=== PATIENT | female | born 1960 ===

== ENCOUNTER 2017-10-17 21:58 | Emergency (ER) | payer BC, OTHER ==
[2017-10-17 22:27] VITALS: BP 152/105; PULSE 79; RESP 18; TEMP 97.9; O2SAT 100
[2017-10-17] MEDS ORDERED: Sodium Chloride 0.9% 1,000 ML IV STA (22:42)
[2017-10-17] MEDS ORDERED: DiphenhydrAMINE 50 mg/ml Inj IV STA (22:42)
[2017-10-17] MEDS ORDERED: Dexamethasone 10 MG in Sodium Chloride 0.9% 50 ML IV STA (22:42)
[2017-10-17] MEDS ORDERED: Famotidine 20mg/50ml Premix IVPB STA (22:42)
[2017-10-17] MEDS ORDERED: Famotidine 20mg/50ml 20 MG/50 ML BAG IVPB ONE (22:59)
[2017-10-17] MEDS ORDERED: DiphenhydrAMINE 50 mg/ml Inj ONE (22:59)
--- NOTE | 2017-10-17 23:16 | ED PDOC ---
HPI: Allergic Reaction Time Seen by Provider: 10/17/17 22:34 Chief Complaint (Nursing): Allergic Reaction Chief Complaint (Provider): Allergic Reaction History Per: Patient History/Exam Limitations: no limitations Onset/Duration Of Symptoms: Days (x2) Current Symptoms Are (Timing): Still Present Additional Complaint(s): 57 y/o female with a pmhx of antiphospholipid antibody syndrome , who presents to the ER for evaluation of an allergic reaction x2 days. Patient states shes had sore throat, shortness of breath, and headache onset last night after eating a salad. She reports her symptoms improved by the morning, however they recurred after eating the same salad for lunch. Patient reports multiple food allergies and suspects the salad may have contained an item she is allergic to. She denies any rash, drooling, nausea, vomiting, or diarrhea, but describes chills. Patient also describes a feeling of chest tightness. Patient is able to speak and swallow, but voice is hoarse. Past Medical History Reviewed: Historical Data, Nursing Documentation, Vital Signs Vital Signs: Last Vital Signs Temp 97.9 F 10/17/17 22:22 Pulse 79 10/17/17 22:22 Resp 18 10/17/17 22:22 BP 152/105 H 10/17/17 22:22 Pulse Ox 100 10/17/17 22:22 - Medical History Other PMH: Antiphospholipid antibody syndrome - Surgical History Surgical History: No Surg Hx - Family History Family History: States: Unknown Family Hx - Social History Current smoker - smoking cessation education provided: No Alcohol: None Drugs: Denies - Home Medications Home Medications: Ambulatory Orders Medication Instructions Recorded Cetirizine HCl [Zyrtec] 10 mg PO QAM #10 capsule 10/18/17 Methylprednisolone [Medrol Dosepak] 4 mg PO ASDIR #1 pkg 10/18/17 - Allergies Allergies/Adverse Reactions: Allergies Allergy/AdvReac Type Severity Reaction Status Date / Time almond Allergy RASH Verified 10/17/17 22:22 ponce Allergy RASH Verified 10/17/17 22:22 latex Allergy RASH Verified 10/17/17 22:22 mushroom Allergy RASH Verified 10/17/17 22:22 pineapple Allergy RASH Verified 10/17/17 22:22 berries Allergy RASH Uncoded 10/17/17 22:22 Review of Systems ROS Statement: Except As Marked, All Systems Reviewed And Found Negative Constitutional: Positive for: Chills. Negative for: Fever ENT: Positive for: Throat Pain Cardiovascular: Positive for: Other (chest tightness) Respiratory: Positive for: Shortness of Breath Gastrointestinal: Negative for: Nausea, Vomiting, Diarrhea Skin: Negative for: Rash Neurological: Positive for: Headache Physical Exam - Reviewed Nursing Documentation Reviewed: Yes Vital Signs Reviewed: Yes - Physical Exam Appears: Positive for: Non-toxic, No Acute Distress, Uncomfortable Head Exam: Positive for: ATRAUMATIC, NORMAL INSPECTION, NORMOCEPHALIC Skin: Positive for: Normal Color, Warm, Dry. Negative for: Rash Eye Exam: Positive for: EOMI, Normal appearance, PERRL ENT: Positive for: Pharyngeal Erythema Neck: Positive for: Normal, Painless ROM, Supple Cardiovascular/Chest: Positive for: Regular Rate, Rhythm. Negative for: Murmur Respiratory: Positive for: Normal Breath Sounds. Negative for: Respiratory Distress Gastrointestinal/Abdominal: Positive for: Normal Exam, Soft. Negative for: Tenderness Back: Positive for: Normal Inspection. Negative for: L CVA Tenderness, R CVA Tenderness, Vertebral Tenderness Extremity: Positive for: Normal ROM. Negative for: Pedal Edema, Deformity Neurologic/Psych: Positive for: Alert, Oriented. Negative for: Motor/Sensory Deficits - Laboratory Results Result Diagrams: 10/17/17 23:10 10/17/17 23:10 - ECG O2 Sat by Pulse Oximetry: 100 (RA) Pulse Ox Interpretation: Normal Disposition - Clinical Impression Clinical Impression: Allergic reaction - Patient ED Disposition Is Patient to be Admitted: No Counseled Patient/Family Regarding: Studies Performed, Diagnosis, Need For Followup, Rx Given - Disposition Disposition: Routine/Home Disposition Time: 01:03 Condition: STABLE Prescriptions: Cetirizine HCl [Zyrtec] 10 mg PO QAM #10 capsule Methylprednisolone [Medrol Dosepak] 4 mg PO ASDIR #1 pkg Instructions: Food Allergy Forms: [employer] (Korean) Medical Decision Making Medical Decision Makin:42 Initial Impression: 57 y/o female with acute allergic reaction Plan: --EKG --CMP --CBC --PTT/PT --Benadryl 50mg IV --Decadron Inj 10mg --1LNS --Pepcid 40mg IVPB --Heplock insertion --Reevaluation 01:03 Upon reevaluation, patient reports marked improvement of symptoms. Provider explained to patient that INR levels are subtherapeutic. Patient reports she stopped taking Coumadin while on antibiotics. She says she will follow up with PMD and states she knows how to take Coumadin properly to reach therapeutic levels. Scribe Attestation: Documented by Flaco Cortez, acting as a scribe for Abhay Monreal MD Provider Scribe Attestation: All medical record entries made by the Scribe were at my direction and personally dictated by me. I have reviewed the chart and agree that the record accurately reflects my personal performance of the history, physical exam, medical decision making, and the department course for this patient. I have also personally directed, reviewed, and agree with the discharge instructions and disposition.
[2017-10-17 23:46] LABS: BASO # 0.1 K/uL (0.0-0.2); BASO % 0.8 % (0.0-2.0); EOS # 0.4 K/uL (0.0-0.7); EOS % 4.7 % (0.0-4.0); HEMOGLOBIN 14.4 g/dL (12.0-16.0); LYMPH # 4.9 K/uL (1.0-4.3); LYMPH % 58.9 % (20.0-40.0); MEAN CELL VOLUME 94.8 fl (81.0-99.0); MEAN CORPUSCULAR HEMOGLOBIN 32.5 pg (27.0-31.0); MEAN CORPUSCULAR HGB CONC 34.3 g/dL (33.0-37.0); MEAN PLATELET VOLUME 9.9 fl (7.2-11.7); MONO # 0.7 K/uL (0.0-0.8); MONO % 8.7 % (0.0-10.0); NEUT # 2.2 K/uL (1.8-7.0); NEUT % 26.9 % (50.0-75.0); NRBC % 0.1 % (0.0-0.0); RBC 4.43 Mil/uL (3.80-5.20); RED CELL DISTRIBUTION WIDTH 12.9 % (11.5-14.5); WHITE BLOOD COUNT 8.3 K/uL (4.8-10.8)
[2017-10-17 23:53] LABS: CALCIUM 9.4 mg/dL (8.4-10.2); GFR AFRICAN-AMERICAN > 60; GFR NON-AFRICAN AMERICAN > 60
[2017-10-17 23:54] LABS: ALB/GLOB RATIO 1.1 (1.0-2.1); ALBUMIN 4.1 g/dL (3.5-5.0); ALT/SGPT 41 U/L (9-52); AST/SGOT 37 U/L (14-36); BLOOD UREA NITROGEN 16 mg/dl (7-17)
[2017-10-18 00:07] LABS: INR 1.1 (0.9-1.2); PARTIAL THROMBOPLASTIN TIME 35.6 Seconds (25.6-37.1); PROTHROMBIN TIME 12.6 Seconds (9.8-13.1)
--- NOTE | 2017-10-18 10:27 | CARD ---
APPROVED REPORT EKG Measurement Heart [id number] <Conclusion> Normal sinus rhythm Normal ECG
== END 2017-10-18 01:15 | disposition home or self-care (01) ==
LOC: H.ER 21:58
DX: T78.40XA Allergy, unspecified, initial encounter (principal); D68.61 Antiphospholipid syndrome
CPT/HCPCS: 80053; 85025; 85610; 85730; 93005; 96365; 96375; 99283; J1100; J1200; J7030

== ENCOUNTER 2018-04-19 13:28 | Observation (INO) | payer BC ==
[2018-04-19] MEDS ORDERED: Glucagon Recombinant 1 mg Inj IV ONE ×2 (15:15→15:45)
[2018-04-19] MEDS ORDERED: Glucagon Recombinant 1 mg Inj ONE (15:26)
[2018-04-19 15:37] LABS: BASO # 0.1 K/uL (0.0-0.2); BASO % 1.1 % (0.0-2.0); EOS # 0.3 K/uL (0.0-0.7); EOS % 5.2 % (0.0-4.0); HEMOGLOBIN 14.7 g/dL (12.0-16.0); LYMPH # 2.8 K/uL (1.0-4.3); LYMPH % 48.7 % (20.0-40.0); MEAN CELL VOLUME 94.2 fl (81.0-99.0); MEAN CORPUSCULAR HEMOGLOBIN 31.7 pg (27.0-31.0); MEAN CORPUSCULAR HGB CONC 33.6 g/dL (33.0-37.0); MEAN PLATELET VOLUME 10.9 fl (7.2-11.7); MONO # 0.5 K/uL (0.0-0.8); MONO % 8.2 % (0.0-10.0); NEUT # 2.1 K/uL (1.8-7.0); NEUT % 36.8 % (50.0-75.0); NRBC % 0.1 % (0.0-0.0); RBC 4.66 Mil/uL (3.80-5.20); RED CELL DISTRIBUTION WIDTH 13.1 % (11.5-14.5); WHITE BLOOD COUNT 5.8 K/uL (4.8-10.8)
[2018-04-19 15:53] LABS: INR 1.1; PROTHROMBIN TIME 12.9 Seconds (9.8-13.1)
--- NOTE | 2018-04-19 15:53 | ED PDOC ---
HPI: Chest Pain Time Seen by Provider: 04/19/18 15:08 Chief Complaint (Nursing): Chest Pain Chief Complaint (Provider): Chest Pain History Per: Patient History/Exam Limitations: no limitations Onset/Duration Of Symptoms: Sudden Onset (1400) Current Symptoms Are (Timing): Still Present Additional Complaint(s): Rosaline Cotton is a 58 year old female, with a PMHx of antiphospholipid syndrome (taking Coumadin), presenting for evaluation of sudden onset chest discomfort an d dysphasia that began at 1400 today. Patient states she was eating celery and carrots when her symptoms began. Patient states he does not believe she chewed well enough and reports pain and pressure that radiates to her throat since swallowing. Patient reports she tried to drink coffee this morning, but was unsuccessful and feels nauseous. Patient otherwise denies any fevers, chills, cough, melena, abdominal pain, and syncope. PMD: Dr. Jd Eagle Past Medical History Reviewed: Historical Data, Nursing Documentation, Vital Signs Vital Signs: Last Vital Signs Temp 97.5 F L 04/19/18 13:34 Pulse 64 04/19/18 13:34 Resp 16 04/19/18 13:34 BP 129/74 04/19/18 13:34 Pulse Ox 99 04/19/18 13:34 - Medical History PMH: Denies: Chronic Kidney Disease Other PMH: Antiphospholipid syndrome - Surgical History Surgical History: No Surg Hx - Family History Family History: States: Unknown Family Hx - Home Medications Home Medications: Ambulatory Orders Medication Instructions Recorded RX: Multivit-Min/Iron/Folic/Bmn833 1 tab PO DAILY 04/19/18 [Hair, Skin and Nails Tablet] RX: Warfarin [Coumadin] 7.5 mg PO DAILY #30 tab 04/20/18 - Allergies Allergies/Adverse Reactions: Allergies Allergy/AdvReac Type Severity Reaction Status Date / Time almond Allergy RASH Verified 10/17/17 22:22 ponce Allergy RASH Verified 10/17/17 22:22 latex Allergy RASH Verified 10/17/17 22:22 mushroom Allergy RASH Verified 10/17/17 22:22 pineapple Allergy RASH Verified 10/17/17 22:22 berries Allergy RASH Uncoded 10/17/17 22:22 Review of Systems ROS Statement: Except As Marked, All Systems Reviewed And Found Negative Constitutional: Negative for: Fever, Chills ENT: Positive for: Throat Pain (difficulty swallowing) Cardiovascular: Positive for: Chest Pain (discomfort) Respiratory: Negative for: Cough Gastrointestinal: Negative for: Abdominal Pain, Melena Neurological: Positive for: Change in Speech (dysphasia). Negative for: Other (syncope) Physical Exam - Reviewed Nursing Documentation Reviewed: Yes Vital Signs Reviewed: Yes - Physical Exam Appears: Positive for: Non-toxic, No Acute Distress Head Exam: Positive for: ATRAUMATIC, NORMAL INSPECTION, NORMOCEPHALIC Skin: Positive for: Normal Color, Warm, Dry. Negative for: Rash Eye Exam: Positive for: EOMI, Normal appearance, PERRL ENT: Positive for: Normal ENT Inspection Neck: Positive for: Normal, Painless ROM, Supple Cardiovascular/Chest: Positive for: Regular Rate, Rhythm. Negative for: Murmur Respiratory: Positive for: Normal Breath Sounds. Negative for: Respiratory Distress Gastrointestinal/Abdominal: Positive for: Normal Exam, Soft. Negative for: Tenderness Back: Positive for: Normal Inspection. Negative for: L CVA Tenderness, R CVA Tenderness, Vertebral Tenderness Extremity: Positive for: Normal ROM. Negative for: Pedal Edema, Deformity Neurologic/Psych: Positive for: Alert, Oriented (x3). Negative for: Motor/Sensory Deficits - Laboratory Results Result Diagrams: 04/19/18 15:33 04/19/18 15:33 - ECG ECG: Positive for: Interpreted By Me, Viewed By Me ECG Rhythm: Positive for: Normal ST Segment, Sinus Rhythm (63 BPM) O2 Sat by Pulse Oximetry: 99 (RA) Pulse Ox Interpretation: Normal Medical Decision Making Medical Decision Making: Plan: Patient's clinical history is supportive of an impacted food bolus. Will obtain blood work including INR and CT chest to rule out ruptured esophagus, although less likely given the patient's lack of vomiting. Case discussed with Dr. Collins, GI career professional, who is in agreement with trial of Glucagon. Awaiting I NR. May need reversal prior to scope. INR normal Dr Collins saw pt at bedside, rec trial PO soda, 8oz coke given with tolerance but ++pain and belching, symptoms persisted thereafter Admit Obs for EGD in am. Patient informed of results, remain NPO. Scribe Attestation: Documented by Flaco Cortez, acting as a scribe for Aamir Ortiz III, DO. Provider Scribe Attestation: All medical record entries made by the Scribe were at my direction and personally dictated by me. I have reviewed the chart and agree that the record accurately reflects my personal performance of the history, physical exam, medical decision making, and the department course for this patient. I have also personally directed, reviewed, and agree with the discharge instructions and disposition. Disposition - Clinical Impression Clinical Impression: Food impaction of esophagus - Patient ED Disposition Is Patient to be Admitted: Yes - Disposition Disposition Time: 17:30 Condition: STABLE
[2018-04-19 15:56] LABS: PARTIAL THROMBOPLASTIN TIME 38.4 Seconds (25.6-37.1)
[2018-04-19 16:00] LABS: ALB/GLOB RATIO 1.2 (1.0-2.1); ALBUMIN 4.4 g/dL (3.5-5.0); BLOOD UREA NITROGEN 10 mg/dl (7-17); CALCIUM 9.6 mg/dL (8.4-10.2); GFR NON-AFRICAN AMERICAN > 60; LIPASE 77 U/L (23-300)
[2018-04-19 16:04] LABS: ALT/SGPT 52 U/L (9-52); AST/SGOT 38 U/L (14-36)
--- NOTE | 2018-04-19 16:38 | CT ---
Date of service: 04/19/2018 PROCEDURE: CT Chest without contrast HISTORY: chest pain w impacted food bolus r/o esoph tear COMPARISON: None available. TECHNIQUE: Contiguous axial images were obtained through the chest without intravenous contrast enhancement. Sagittal and coronal reconstructions were performed. Radiation dose: Total exam DLP = 377.08 mGy-cm. This CT exam was performed using one or more of the following dose reduction techniques: Automated exposure control, adjustment of the mA and/or kV according to patient size, and/or use of iterative reconstruction technique. FINDINGS: LUNGS: The lungs are well inflated and clear. Visualized airway clear MEDIASTINUM: Unremarkable thoracic aorta. No aneurysm. Normal sized heart. Main pulmonary artery unremarkable. No vascular congestion. No lymphadenopathy. No aortic atherosclerotic calcification. Evaluation of the esophagus is limited in the absence of oral contrast. Allowing for this, there is no evidence for pneumomediastinum to suggest esophageal tear. There is a small sliding hiatal hernia. Otherwise the thoracic esophagus is decompressed. PLEURA: No pleural fluid. No pneumothorax. BONES: No fracture. No destructive lesion. UPPER ABDOMEN: Grossly unremarkable. OTHER FINDINGS: None. IMPRESSION: Clear lungs. Evaluation of the thoracic esophagus is limited in the absence of oral contrast. Allowing for this, small sliding hiatal hernia. The thoracic esophagus is decompressed. No evidence of pneumomediastinum to suggest esophageal tear.
[2018-04-19] MEDS ORDERED: Sodium Chloride 0.9% 1,000 ML IV STA (18:09)
[2018-04-19] MEDS ORDERED: Morphine 4 MG/ML VIAL IVP PRN ×2 (23:34→23:36)
[2018-04-20] MEDS ORDERED: Sodium Chloride 0.9% 1,000 ML IV SCH (02:00)
[2018-04-20] MEDS ORDERED: Lactated Ringer's 500 ML IV ONE (08:11)
[2018-04-20] MEDS ORDERED: Propofol 10 mg/ml Inj (20 ML) ONE (08:22)
[2018-04-20 11:04] VITALS: BP 114/76; PULSE 69; RESP 18; TEMP 98
--- NOTE | 2018-04-20 17:35 | CP.PCM.HP ---
<Alistair Everett - Last Filed: 04/20/18 17:32> History of Present Illness - History of Present Illness History of Present Illness: Pt is a 58 y/o female with hx of Antiphospholipid syndrome who presented to ED with throat and chest pain. States a few days ago she was eating a salad very fast and soon after began to experience throat pain whenever she ate. Today the pain was unbearable, which is what prompted her to come to the ED. Shed denies n/v/abdominal pain/ diarrhea, fever or chills. PMD: Dr. Eagle Present on Admission - Present on Admission Any Indicators Present on Admission: No Past Patient History - Past Medical History & Family History Past Medical History?: Yes - Past Social History Smoking Status: Never Smoked - CARDIAC Hx Cardiac Disorders: No - PULMONARY Hx Respiratory Disorders: No - NEUROLOGICAL Hx Neurological Disorder: No - HEENT Hx HEENT Problems: No - RENAL Hx Chronic Kidney Disease: No - ENDOCRINE/METABOLIC Hx Endocrine Disorders: No - HEMATOLOGICAL/ONCOLOGICAL Hx Blood Disorders: Yes Other/Comment: antiphospholipid syndrome - INTEGUMENTARY Hx Dermatological Problems: No - MUSCULOSKELETAL/RHEUMATOLOGICAL Hx Musculoskeletal Disorders: No Hx Falls: No - GASTROINTESTINAL Hx Gastrointestinal Disorders: No - GENITOURINARY/GYNECOLOGICAL Hx Genitourinary Disorders: No - PSYCHIATRIC Hx Psychophysiologic Disorder: No Hx Substance Use: No - SURGICAL HISTORY Hx Surgeries: No Hx Hysterectomy: Yes Other/Comment: hernia repair - ANESTHESIA Hx Anesthesia: Yes Hx Anesthesia Reactions: No Meds Home Medications: Home Medication List Medication Instructions Recorded Confirmed Type RX: Warfarin [Coumadin] 7.5 mg PO DAILY #30 tab 04/20/18 Rx Allergies/Adverse Reactions: Allergies Allergy/AdvReac Type Severity Reaction Status Date / Time almond Allergy RASH Verified 10/17/17 22:22 ponce Allergy RASH Verified 10/17/17 22:22 latex Allergy RASH Verified 10/17/17 22:22 mushroom Allergy RASH Verified 10/17/17 22:22 pineapple Allergy RASH Verified 10/17/17 22:22 berries Allergy RASH Uncoded 10/17/17 22:22 Physical Exam - Constitutional Appears: No Acute Distress - Head Exam Head Exam: NORMAL INSPECTION - Eye Exam Eye Exam: Normal appearance - ENT Exam ENT Exam: Mucous Membranes Moist - Respiratory Exam Respiratory Exam: Clear to Auscultation Bilateral - Cardiovascular Exam Cardiovascular Exam: REGULAR RHYTHM, +S1, +S2. absent: Systolic Murmur - GI/Abdominal Exam GI & Abdominal Exam: Normal Bowel Sounds, Soft. absent: Tenderness - Neurological Exam Neurological exam: Alert - Psychiatric Exam Psychiatric exam: Normal Affect - Skin Skin Exam: Normal Color Results - Vital Signs Recent Vital Signs: Last Vital Signs Temp 98 F 04/20/18 10:32 Pulse 69 04/20/18 10:32 Resp 18 04/20/18 10:32 BP 114/76 04/20/18 10:32 Pulse Ox 95 04/20/18 10:32 - Labs Result Diagrams: 04/19/18 15:33 04/19/18 15:33 Labs: Laboratory Results - last 24 hr 04/20/18 02:30 Urine HCG, Qual Negative Assessment & Plan - Assessment and Plan (Free Text) Assessment: Pt is a 58 y/o female with hx of Antiphospholipid syndrome who presented to ED with throat and chest pain. States a few days ago she was eating a salad very fast and soon after began to experience throat pain whenever she ate. Today the pain was unbearable, which is what prompted her to come to the ED. Shed denies n/v/abdominal pain/ diarrhea, fever or chills. Pt was evaluated by GI and had endoscopy which showed erythematous mucosa but did not reveal any significant pathologie. Pt was cleared for discharge home by GI. She was refilled on her coumadin medication. <Jey Rojo - Last Filed: 04/21/18 12:09> Results - Vital Signs Recent Vital Signs: Last Vital Signs Temp 98 F 04/20/18 10:32 Pulse 69 04/20/18 10:32 Resp 18 04/20/18 10:32 BP 114/76 04/20/18 10:32 Pulse Ox 99 04/20/18 23:24 - Labs Result Diagrams: 04/19/18 15:33 04/19/18 15:33 Attending/Attestation - Attestation I have personally seen and examined this patient.: Yes I have fully participated in the care of the patient.: Yes I have reviewed all pertinent clinical information: Yes
--- NOTE | 2018-04-20 17:37 | CP.PCM.PCO ---
Physician Communication Note - Physician Communication Note Physician Communication Note: pt clear for dsicharge allyson by GI
--- NOTE | 2018-04-20 20:27 | CON ---
DATE: 04/19/2018 REFERRING PHYSICIAN: Dr. Ortiz from the ER. REASON FOR CONSULTATION: Positive pressure. HISTORY OF PRESENT ILLNESS: This is a pleasant 58-year-old female who was noted to be eating some carrots yesterday at 2 p.m. and seemed to get stuck. She was able to tolerate clears. She was able to swallow it down. She went to bed last night and now came to the ER 24 hours later with some sensation of globus sensation and discomfort. The patient has had some reflux, but otherwise no GI complaints. Very pleasant and comfortable, lying in no apparent distress. PAST MEDICAL HISTORY: As above and includes antiphospholipid syndrome, but does not take Coumadin. SURGICAL HISTORY: As above. MEDICATIONS: Have been reviewed. REVIEW OF SYSTEMS: All other systems have been reviewed and negative apart from the HPI. PHYSICAL EXAMINATION: GENERAL: This is a pleasant elderly appearing female, lying in bed comfortably, in no apparent distress. VITAL SIGNS: Here in the hospital, grossly unremarkable. HEENT: Head: Normocephalic, atraumatic. Eyes: Pupils are equally reactive to light bilaterally. No conjunctival pallor or icterus. NECK: Supple, normal range of motion. No lymphadenopathy appreciated. LUNGS: Coarse breath sounds bilaterally. HEART: S1, S2. Regular rate and rhythm. No murmurs appreciated. ABDOMEN: Soft, nontender. Bowel sounds present. No rebound. No guarding. RECTAL: Deferred. EXTREMITIES: Pulses present bilaterally. SKIN: Warm, dry, and intact. NEUROLOGIC: A and O x3. LABORATORY DATA: All labs and relevant radiology have been reviewed. CT shows decompression of the esophagus and no free air. Labs seem to be unremarkable. ASSESSMENT AND PLAN: This is a 58-year-old female with unlikley food impaction plan for endoscopy if she stays. Thank you for the consult. Aamir Collins MD/ PhD cc: Gilbert Rivas MD MTDD
[2018-04-20 23:24] VITALS: O2SAT 99
== END 2018-04-20 15:35 | disposition home or self-care (01) ==
LOC: H.ER 13:28 → H.ERHOLD 18:04 → H.MEDSURG1 21:43
PROVIDERS: ADMIT Family Medicine; ATTEND Family Medicine
DX: R07.0 Pain in throat (principal); R47.02 Dysphasia; R07.89 Other chest pain; D68.61 Antiphospholipid syndrome; Z79.01 Long term (current) use of anticoagulants; Z91.040 Latex allergy status; Z91.018 Allergy to other foods; K31.89 Other diseases of stomach and duodenum; R12 Heartburn
CPT/HCPCS: 43239; 71250; 80053; 83690; 84484; 84703; 85025; 85610; 85730; 88305; 99285; G0378; J1610; J2001; J2270; J2405; J2704; J3010; J7030; J7120